=== PATIENT | female | born 1985 | race Two or more races ===

== ENCOUNTER 2017-02-27 13:41 | Emergency (ER) | payer MEDICARE, BC ==
[~2017-02-27] VITALS: Ht 165.1 cm; Wt 56.0 kg
[2017-02-27 13:44] VITALS: Ht 165.1 cm; Wt 56.0 kg
[2017-02-27] MEDS ORDERED: morphine 4 MG/ML VIAL IV STA (14:18)
[2017-02-27] MEDS ORDERED: SOD CHLORIDE 0.9% 1,000 ML IV STA (14:18)
[2017-02-27] MEDS ORDERED: ONDANSETRON 4 MG INJ IV STA (14:18)
[2017-02-27] MEDS ORDERED: DIPHENHYDRAMINE 25 MG CAP PO ONE (14:30)
[2017-02-27 14:45] LABS: BASOPHILS % 0.2 % (0.0-2.0); EOSINOPHILS # 0.2 10^3/ul (0.0-0.5); EOSINOPHILS % 3.4 % (0.0-7.0); HEMATOCRIT 34.6 % (37.0-47.0); HEMOGLOBIN 11.4 g/dl (12.0-16.0); LYMPHOCYTES # 2.1 10^3/ul (0.8-2.9); LYMPHOCYTES % 37.1 % (15.0-51.0); MEAN CORPUSCULAR HEMOGLOBIN 30.2 pg (29.0-33.0); MEAN CORPUSCULAR HGB CONC 32.9 g/dl (32.0-37.0); MEAN CORPUSCULAR VOLUME 91.5 fl (82.0-101.0); MEAN PLATELET VOLUME 8.9 fl (7.4-10.4); MONOCYTE # 0.4 10^3/ul (0.3-0.9); MONOCYTES % 6.3 % (0.0-11.0); NEUTROPHIL # 2.9 10^3/ul (1.6-7.5); NEUTROPHILS % 52.8 % (39.0-77.0); PLATELET COUNT 201 10^3/UL (140-415); RED BLOOD COUNT 3.78 10^6/ul (4.20-5.40); RED CELL DISTRIBUTION WIDTH 14.1 % (11.5-14.5); WHITE BLOOD COUNT 5.6 10^3/ul (4.8-10.8)
[2017-02-27 14:53] LABS: ADD UMIC YES; UR AMORPHOUS CRYSTAL FEW /HPF (NONE SEEN); UR ASCORBIC ACID 20 mg/dL (NEGATIVE); UR BACTERIA FEW /HPF (NONE SEEN); UR BILIRUBIN (Dip) NEGATIVE (NEGATIVE); UR BLOOD (Dip) NEGATIVE (NEGATIVE); UR CLARITY CLOUDY (CLEAR); UR COLOR YELLOW (YELLOW); UR GLUCOSE (Dip) NEGATIVE (NEGATIVE); UR KETONES (Dip) NEGATIVE (NEGATIVE); UR LEUKOCYTE ESTERASE (Dip) NEGATIVE Leu/ul (NEGATIVE); UR NITRITE (Dip) NEGATIVE (NEGATIVE); UR RBC 2 /HPF (0-5); UR SPECIFIC GRAVITY (Dip) 1.016 (1.003-1.030); UR SQUAMOUS EPITHELIAL CELL FEW /HPF (FEW); UR TOTAL PROTEIN (Dip) NEGATIVE (NEGATIVE); UR UROBILINOGEN (Dip) NEGATIVE (NEGATIVE)
[2017-02-27] MEDS ORDERED: FAMOTIDINE 20 MG INJ IV ONE (15:00)
[2017-02-27 15:06] LABS: ALBUMIN 4.6 g/dl (3.3-4.9); ALBUMIN/GLOBULIN RATIO 1.76; BILIRUBIN,INDIRECT 0.1 mg/dl (0-1.1); BILIRUBIN,TOTAL 0.1 mg/dl (0.2-1.3); CALCIUM 9.8 mg/dl (8.4-10.2); CREATININE 0.66 mg/dl (0.44-1.00); POTASSIUM 4.7 mmol/L (3.5-5.1); TOTAL PROTEIN 7.2 g/dl (6.1-8.1)
--- NOTE | 2017-02-27 16:01 | RADRPT ---
PROCEDURE: US Abdomen. CLINICAL INDICATION: Abdominal pain TECHNIQUE: Multiple real-time images were acquired of the patient's abdomen and retroperitoneum ut ilizing a high resolution transducer. COMPARISON: None FINDINGS: The liver demonstrates normal echogenicity. The liver is normal in size and no focal lesions are se en. The portal vein is patent with normal direction of flow. Mild intrahepatic biliary dilatation is seen. Gallbladder is surgically absent. The common bile duct measures 3 mm in maximal dimension. The visualized portions of the pancreas are unremarkable. The right kidney is normal size, and demonstrate normal echogenicity and cortical thickness. The ri ght kidney measures 9 cm in long dimension. There is mild hydronephrosis. There are no kidney stones . IMPRESSION: 1. Status post cholecystectomy. Mild intrahepatic biliary ductal dilatation. 2. Mild right hydronephrosis. RPTAT: QQ Physician Beny Date Time Electronically viewed and signed by Physician Beny on 02/27/2017 16:00 /
[2017-02-27] MEDS ORDERED: HYDROmorphONE 0.5 MG/0.5 ML SYG IV STA (16:16)
[2017-02-27] MEDS ORDERED: DIPHENHYDRAMINE 50 MG INJ IV ONE (16:30)
[2017-02-27] MEDS ORDERED: SCOPOLAMINE 1.5 MG PATCH TRANSDERM ONE (16:30)
[2017-02-27 17:09] VITALS: BP 112/73; PULSE 72; RESP 18; TEMP 98.8
--- NOTE | 2017-02-27 17:59 | ERD ---
ER Documentation Chief Complaint Chief Complaint epigastric pain, nausea, vomitting since this morning HPI 31-year-old female complaining of epigastric pain with nausea and vomiting since this morning. Patient states she has a history of pancreatitis and feels that her pain is similar to her previous episodes. Normal bowel movements. No chest pain or shortness of breath. No fevers. She has a "lupus-like autoimmune disorder" and is unable medications by mouth. Has not taken medications for her symptoms today. ROS All systems reviewed and are negative except as per history of present illness. PMhx/Soc Medical and Surgical Hx: pt denies Medical Hx, pt denies Surgical Hx History of Surgery: No Anesthesia Reaction: No Hx Neurological Disorder: No Hx Respiratory Disorders: No Hx Psychiatric Problems: No Hx Miscellaneous Medical Probl: No Hx Alcohol Use: No Hx Substance Use: No Hx Tobacco Use: No Physical Exam Vitals Vital Signs Date Time Temp Pulse Resp B/P Pulse Ox O2 Delivery O2 Flow Rate FiO2 02/27/17 17:09 98.8 72 18 112/73 99 02/27/17 13:44 99.0 106 18 105/69 99 Physical Exam GENERAL: The patient is well-appearing, well-nourished, in no acute distress CHEST: Clear to auscultation bilaterally. There are no rales, wheezes or rhonchi. HEART: Regular rate and rhythm. No murmurs, clicks, rubs or gallops. No S3 or S4. ABDOMEN: Normoactive bowel sounds, no distention, mild tenderness palpation epigastric region. No rigidity. No organomegaly. BACK: No midline or flank tenderness. SKIN: There is no apparent rash or petechiae. The skin is warm and dry. Result Diagram: 02/27/17 1430 02/27/17 1430 Results 24 hrs Laboratory Tests Test 02/27/17 14:30 White Blood Count 5.610^3/ul Red Blood Count 3.7810^6/ul Hemoglobin 11.4g/dl Hematocrit 34.6% Mean Corpuscular Volume 91.5fl Mean Corpuscular Hemoglobin 30.2pg Mean Corpuscular Hemoglobin Concent 32.9g/dl Red Cell Distribution Width 14.1% Platelet Count 77275^3/UL Mean Platelet Volume 8.9fl Neutrophils % 52.8% Lymphocytes % 37.1% Monocytes % 6.3% Eosinophils % 3.4% Basophils % 0.2% Nucleated Red Blood Cells % 0.0/100WBC Neutrophils # 2.910^3/ul Lymphocytes # 2.110^3/ul Monocytes # 0.410^3/ul Eosinophils # 0.210^3/ul Basophils # 0.010^3/ul Nucleated Red Blood Cells # 0.010^3/ul Urine Color YELLOW Urine Clarity CLOUDY Urine pH 7.0 Urine Specific [place] 1.016 Urine Ketones NEGATIVEmg/dL Urine Nitrite NEGATIVEmg/dL Urine Bilirubin NEGATIVEmg/dL Urine Urobilinogen NEGATIVEmg/dL Urine Leukocyte Esterase NEGATIVELeu/ul Urine Microscopic RBC 2/HPF Urine Microscopic WBC 6/HPF Urine Squamous Epithelial Cells FEW/HPF Urine Amorphous Crystals FEW/HPF Urine Bacteria FEW/HPF Urine Hemoglobin NEGATIVEmg/dL Urine Glucose NEGATIVEmg/dL Urine Total Protein NEGATIVEmg/dl Sodium Level 143mmol/L Potassium Level 4.7mmol/L Chloride Level 106mmol/L Carbon Dioxide Level 25mmol/L Anion Gap 17 Blood Urea Nitrogen 13mg/dl Creatinine 0.66mg/dl Glucose Level 96mg/dl Calcium Level 9.8mg/dl Total Bilirubin 0.1mg/dl Direct Bilirubin 0.00mg/dl Indirect Bilirubin 0.1mg/dl Aspartate Amino Transf (AST/SGOT) 19IU/L Alanine Aminotransferase (ALT/SGPT) 22IU/L Alkaline Phosphatase 61IU/L Total Protein 7.2g/dl Albumin 4.6g/dl Globulin 2.60g/dl Albumin/Globulin Ratio 1.76 Lipase 470U/L Serum HCG, Qualitative NEGATIVE Current Medications Medications (Trade) Dose Ordered Sig/Sharan Route PRN Reason Start Time Stop Time Status Last Admin Dose Admin Sodium Chloride (NS) 1,000 ml @ 1,000 mls/hr Q1H STAT IV 02/27/17 14:18 02/27/17 15:17 DC 02/27/17 14:30 Morphine Sulfate (morphine) 4 mg ONCE STAT IV 02/27/17 14:18 02/27/17 14:21 DC 02/27/17 14:36 Ondansetron HCl (Zofran Inj) 4 mg ONCE STAT IV 02/27/17 14:18 02/27/17 14:21 DC 02/27/17 14:36 Diphenhydramine HCl (Benadryl) 25 mg ONCE ONCE PO 02/27/17 14:30 02/27/17 14:31 DC 02/27/17 14:35 Famotidine (Pepcid Iv) 20 mg ONCE ONCE IV 02/27/17 15:00 02/27/17 15:01 DC 02/27/17 14:45 Hydromorphone HCl (Dilaudid) 0.5 mg ONCE STAT IV 02/27/17 16:16 02/27/17 16:17 DC 02/27/17 16:36 Scopolamine (Transderm-Scop) 1 patch ONCE ONCE TRANSDERM 02/27/17 16:30 02/27/17 16:31 DC 02/27/17 16:41 Diphenhydramine HCl (Benadryl) 25 mg ONCE ONCE IV 02/27/17 16:30 02/27/17 16:31 DC 02/27/17 16:36 Procedures/MDM DIAGNOSTIC IMAGING REPORT Patient: KARLEY AMBRIZ : 1985 Age: 31 Sex: F MR #: [id number] DOS: 02/27/17 1418 Ordering MD: BERENICE FLORES PA-C Location: [facility] Room/Bed: PROCEDURE: US Abdomen. CLINICAL INDICATION: Abdominal pain TECHNIQUE: Multiple real-time images were acquired of the patient's abdomen and retroperitoneum utilizing a high resolution transducer. COMPARISON: None FINDINGS: The liver demonstrates normal echogenicity. The liver is normal in size and no focal lesions are seen. The portal vein is patent with normal direction of flow. Mild intrahepatic biliary dilatation is seen. Gallbladder is surgically absent. The common bile duct measures 3 mm in maximal dimension. The visualized portions of the pancreas are unremarkable. The right kidney is normal size, and demonstrate normal echogenicity and cortical thickness. The right kidney measures 9 cm in long dimension. There is mild hydronephrosis. There are no kidney stones. IMPRESSION: 1. Status post cholecystectomy. Mild intrahepatic biliary ductal dilatation. 2. Mild right hydronephrosis. ER Course: IV Morphine, Dilaudid, and Benadryl given in ED. patient's symptoms improved. Pain was well controlled. MDM: 31-year-old female complaining of epigastric pain with a history of pancreatitis. Patient does have mildly elevated lipase however is not 3 times the upper limit and pain is controlled upon discharge I do not feel there is indication for admission at this time. Patient's ultrasound is within normal limits. LFTs are within normal limits I do not feel there is concern for choledocholithiasis at this time. Patient's pain is well controlled and patient is tolerating p.o.'s in the ED. I do not feel that there is indication for admission at this time. I have low suspicion for other acute abdominal emergencies and do not feel there is indication for CT scan. Patient is discharged with strict ER precautions and recommended to follow-up with primary care within 1-2 days for close evaluation. Patient is discharged with strict ER precautions, all questions answered discharge per Departure Diagnosis: Primary Impression: Epigastric pain Condition: Stable Patient Instructions: Epigastric Pain (Uncertain Cause) Referrals: [facility] YOU HAVE RECEIVED A MEDICAL SCREENING EXAM AND THE RESULTS INDICATE THAT YOU DO NOT HAVE A CONDITION THAT REQUIRES URGENT TREATMENT IN THE EMERGENCY DEPARTMENT. FURTHER EVALUATION AND TREATMENT OF YOUR CONDITION CAN WAIT UNTIL YOU ARE SEEN IN YOUR DOCTORS OFFICE WITHIN THE NEXT 1-2 DAYS. IT IS YOUR RESPONSIBILITY TO MAKE AN APPOINTMENT FOR [facility]. IF YOU HAVE A PRIMARY DOCTOR --you should call your primary doctor and schedule an appointment IF YOU DO NOT HAVE A PRIMARY DOCTOR YOU CAN CALL OUR PHYSICIAN REFERRAL HOTLINE AT IF YOU CAN NOT AFFORD TO SEE A PHYSICIAN YOU CAN CHOSE FROM THE FOLLOWING [facility] [address] [facility] [facility] [address] [facility] [facility] [address] [facility] [address] [facility]. [facility] [address] [facility]. [facility] [address] Additional Instructions: FOLLOW UP WITH YOUR PRIMARY CARE PHYSICIAN TOMORROW.Return to this facility if you are not improving as expected. MARILIN FLORES PA-C Feb 27, 2017 17:59
== END 2017-02-27 17:10 | disposition home or self-care (01) ==
LOC: FTE 13:41
DX: R10.13 Epigastric pain (principal); R11.2 Nausea with vomiting, unspecified
CPT/HCPCS: 36415; 76705; 80053; 81001; 83690; 84703; 85025; 96374; 96375; 99285; J1170; J1200; J2270; J2405; J7030

== ENCOUNTER 2017-04-03 10:43 | Emergency (ER) | payer MEDICARE, BC ==
[~2017-04-03] VITALS: Ht 165.1 cm; Wt 55.2 kg
[2017-04-03 10:54] VITALS: Ht 165.1 cm; Wt 55.2 kg
[2017-04-03 12:49] LABS: BASOPHILS % 0.6 % (0.0-2.0); EOSINOPHILS # 0.2 10^3/ul (0.0-0.5); EOSINOPHILS % 2.9 % (0.0-7.0); HEMATOCRIT 33.4 % (37.0-47.0); HEMOGLOBIN 11.4 g/dl (12.0-16.0); LYMPHOCYTES # 1.7 10^3/ul (0.8-2.9); LYMPHOCYTES % 31.6 % (15.0-51.0); MEAN CORPUSCULAR HEMOGLOBIN 30.5 pg (29.0-33.0); MEAN CORPUSCULAR HGB CONC 34.1 g/dl (32.0-37.0); MEAN CORPUSCULAR VOLUME 89.3 fl (82.0-101.0); MONOCYTE # 0.4 10^3/ul (0.3-0.9); MONOCYTES % 7.9 % (0.0-11.0); NEUTROPHIL # 3.1 10^3/ul (1.6-7.5); NEUTROPHILS % 56.8 % (39.0-77.0); PLATELET COUNT 213 10^3/UL (140-415); RED BLOOD COUNT 3.74 10^6/ul (4.20-5.40); RED CELL DISTRIBUTION WIDTH 13.8 % (11.5-14.5); WHITE BLOOD COUNT 5.5 10^3/ul (4.8-10.8)
[2017-04-03 12:57] LABS: ADD UMIC NO; UR ASCORBIC ACID NEGATIVE (NEGATIVE); UR BILIRUBIN (Dip) NEGATIVE (NEGATIVE); UR BLOOD (Dip) NEGATIVE (NEGATIVE); UR CLARITY CLEAR (CLEAR); UR COLOR YELLOW (YELLOW); UR GLUCOSE (Dip) NEGATIVE (NEGATIVE); UR KETONES (Dip) NEGATIVE (NEGATIVE); UR LEUKOCYTE ESTERASE (Dip) NEGATIVE Leu/ul (NEGATIVE); UR NITRITE (Dip) NEGATIVE (NEGATIVE); UR SPECIFIC GRAVITY (Dip) 1.017 (1.003-1.030); UR TOTAL PROTEIN (Dip) NEGATIVE (NEGATIVE); UR UROBILINOGEN (Dip) NEGATIVE (NEGATIVE)
[2017-04-03] MEDS ORDERED: morphine 4 MG/ML VIAL IV STA ×2 (13:06→14:35)
[2017-04-03] MEDS ORDERED: SOD CHLORIDE 0.9% 1,000 ML IV STA (13:06)
[2017-04-03] MEDS ORDERED: ONDANSETRON 4 MG INJ IV STA ×2 (13:06→14:35)
[2017-04-03 13:13] LABS: ALBUMIN 4.1 g/dl (3.3-4.9); ALBUMIN/GLOBULIN RATIO 1.36; BILIRUBIN,INDIRECT 0.2 mg/dl (0-1.1); BILIRUBIN,TOTAL 0.2 mg/dl (0.2-1.3); CALCIUM 9.4 mg/dl (8.4-10.2); CREATININE 0.6 mg/dl (0.44-1.00); POTASSIUM 4.5 mmol/L (3.5-5.1); TOTAL PROTEIN 7.1 g/dl (6.1-8.1)
[2017-04-03] MEDS ORDERED: SOD CHLORIDE 0.9% 100 ML ONE (13:36)
[2017-04-03] MEDS ORDERED: IOHEXOL 300MG/ML 150 ML BTL ONE (13:36)
[2017-04-03] MEDS ORDERED: FAMOTIDINE 20 MG INJ IV STA (14:35)
--- NOTE | 2017-04-03 14:51 | RADRPT ---
PROCEDURE: CT Abdomen and Pelvis with contrast. CLINICAL INDICATION: Abdominal pain. TECHNIQUE: CT scan of the abdomen and pelvis with contrast was performed on a multi-detector CT [facility] [place]. The patient was scanned following the uncomplicated intravenous administration of 90 cc of O mnipaque 300. Coronal and sagittal reformatted images were obtained from the axial source images. Im ages were reviewed on a high-resolution PACS workstation. DICOM images are available. One or more of the following dose reduction techniques were used: -Automated exposure control. -Adjustment of the mA and/or kV according to patient size. -Use of iterative reconstruction technique. The total exam CTDI equals 5.10 mGy and the total exam DLP equals 250.10 mGy-cm. COMPARISON: Ultrasound 02/27/2017. FINDINGS: Images of the lung bases are clear. Incompletely imaged breast implants. CT abdomen: Liver: There are a few too small to characterize hypodense lesions in the liver. Biliary system: Mild prominence of a few intrahepatic bile ducts, likely related to post cholecystec chen state. Gallbladder: There are post-surgical changes of a cholecystectomy. Pancreas: Unremarkable. Spleen: Unremarkable. Adrenal glands: Unremarkable. Right kidney: Unremarkable. No hydronephrosis or hydroureter. Left kidney: Unremarkable. No hydronephrosis or hydroureter. Bowel loops: There are nonspecific mildly prominent air and fluid-filled small bowel loops. There is a moderate amount of stool noted throughout the colon. Appendix is normal. There is no bowel obstr uction. Lymph Nodes: There is no mesenteric lymphadenopathy. There is no retroperitoneal lymphadenopathy. CT pelvis: Rectum: Unremarkable. Urinary bladder: Unremarkable. Uterus appears unremarkable. No adnexal masses. Lymph nodes: There is no iliac lymphadenopathy. There is no inguinal lymphadenopathy. Bone: No aggressive osseous lesions. IMPRESSION: 1. Non-specific mildly prominent air and fluid-filled small bowel loops, which can be seen with ent eritis. Moderate amount of stool throughout the colon. No bowel obstruction. Normal appendix. 2. Status post cholecystectomy. RPTAT: [facility] Physician Jeane Date Time Electronically viewed and signed by Calvin Acuña Physician on 04/03/2017 14:51 PH/
--- NOTE | 2017-04-03 15:27 | ERD ---
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 Recent cultures of this have been clear. Patient says she has had diarrhea for 3 days that is watery and nonbloody she is also complaining of some epigastric tenderness with heartburn which is chronic. She has a history of tachycardia of uncertain etiology but she is not having any episodes and no chest pain. No vomiting no fever no back pain. She is also complaining of 2-3 days of dysuria ROS All systems reviewed and are negative except as per history of present illness. Medications Home Meds No Active Prescriptions or Reported Meds Allergies Allergies: Coded Allergies: Penicillins (Unverified Allergy, Unknown, 04/03/17) Sulfa (Sulfonamide Antibiotics) (Unverified Allergy, Unknown, 04/03/17) acetaminophen (Unverified Allergy, Unknown, 04/03/17) aspirin (Unverified Allergy, Unknown, 04/03/17) codeine (Unverified Allergy, Unknown, 04/03/17) metoclopramide (Unverified Allergy, Unknown, 04/03/17) prochlorperazine (Unverified Allergy, Unknown, 04/03/17) vancomycin (Unverified Allergy, Unknown, 04/03/17) PMhx/Soc History of Surgery: No Anesthesia Reaction: No Hx Neurological Disorder: No Hx Respiratory Disorders: No Hx Psychiatric Problems: No Hx Miscellaneous Medical Probl: No Hx Alcohol Use: No Hx Substance Use: No Hx Tobacco Use: No Smoking Status: Never smoker FmHx Family History: No coronary disease Physical Exam Vitals Vital Signs Date Time Temp Pulse Resp B/P Pulse Ox O2 Delivery O2 Flow Rate FiO2 04/03/17 10:54 98.0 122 18 134/88 100 Physical Exam Const: Well-developed, well-nourished Head: Atraumatic, normocephalic Eyes: Normal Conjunctiva, PERRLA, EOMI, normal sclera, no nystagmus ENT: Normal External Ears, Nose and Mouth, moist mucus membranes. Neck: Full range of motion. No meningismus, no lymphadenopathy. Resp: Clear to auscultation bilaterally, no wheezing, rhonchi, rales Cardio: Regular rate and rhythm, no murmurs, S1 S2 present Abd: Soft, mild epigastric tenderness, non distended. Normal bowel sounds, no guarding or rebound, no pulsitile abdominal masses or bruits Skin: No petechiae or rashes, no ecchymosis , no maculopapular rash Back: No midline or flank tenderness Ext: No cyanosis, or edema, FROM x 4, normal inspection, neurovascularly intact x 4 Neur: Awake and alert, STR 5/5 x 4, sensation intact x 4, no focal findings, cerebellum intact Psych: Normal Mood and Affect Result Diagram: 04/03/17 1230 04/03/17 1230 Results 24 hrs Laboratory Tests Test 04/03/17 12:30 White Blood Count 5.510^3/ul Red Blood Count 3.7410^6/ul Hemoglobin 11.4g/dl Hematocrit 33.4% Mean Corpuscular Volume 89.3fl Mean Corpuscular Hemoglobin 30.5pg Mean Corpuscular Hemoglobin Concent 34.1g/dl Red Cell Distribution Width 13.8% Platelet Count 48278^3/UL Mean Platelet Volume 9.0fl Neutrophils % 56.8% Lymphocytes % 31.6% Monocytes % 7.9% Eosinophils % 2.9% Basophils % 0.6% Nucleated Red Blood Cells % 0.0/100WBC Neutrophils # 3.110^3/ul Lymphocytes # 1.710^3/ul Monocytes # 0.410^3/ul Eosinophils # 0.210^3/ul Basophils # 0.010^3/ul Nucleated Red Blood Cells # 0.010^3/ul Urine Color YELLOW Urine Clarity CLEAR Urine pH 7.0 Urine Specific [place] 1.017 Urine Ketones NEGATIVEmg/dL Urine Nitrite NEGATIVEmg/dL Urine Bilirubin NEGATIVEmg/dL Urine Urobilinogen NEGATIVEmg/dL Urine Leukocyte Esterase NEGATIVELeu/ul Urine Hemoglobin NEGATIVEmg/dL Urine Glucose NEGATIVEmg/dL Urine Total Protein NEGATIVEmg/dl Sodium Level 141mmol/L Potassium Level 4.5mmol/L Chloride Level 106mmol/L Carbon Dioxide Level 24mmol/L Anion Gap 16 Blood Urea Nitrogen 10mg/dl Creatinine 0.60mg/dl Glucose Level 85mg/dl Calcium Level 9.4mg/dl Total Bilirubin 0.2mg/dl Direct Bilirubin 0.00mg/dl Indirect Bilirubin 0.2mg/dl Aspartate Amino Transf (AST/SGOT) 26IU/L Alanine Aminotransferase (ALT/SGPT) 36IU/L Alkaline Phosphatase 70IU/L Total Protein 7.1g/dl Albumin 4.1g/dl Globulin 3.00g/dl Albumin/Globulin Ratio 1.36 Lipase 313U/L Current Medications Medications (Trade) Dose Ordered Sig/Sharan Route PRN Reason Start Time Stop Time Status Last Admin Dose Admin Sodium Chloride (NS) 1,000 ml @ 1,000 mls/hr Q1H STAT IV 04/03/17 13:06 04/03/17 14:05 DC 04/03/17 13:29 Morphine Sulfate (morphine) 6 mg ONCE STAT IV 04/03/17 13:06 04/03/17 13:08 DC 04/03/17 13:29 Ondansetron HCl 4 mg 4 mg ONCE STAT IV 04/03/17 13:06 04/03/17 13:08 DC 04/03/17 13:29 Sodium Chloride (NS) 100 ml @ ud STK-MED ONCE .ROUTE 04/03/17 13:36 04/03/17 13:37 DC 04/03/17 13:49 Iohexol (Omnipaque 300mg/ ml) 150 ml STK-MED ONCE .ROUTE 04/03/17 13:36 04/03/17 13:37 DC 04/03/17 13:50 Morphine Sulfate (morphine) 6 mg ONCE STAT IV 04/03/17 14:35 04/03/17 14:36 DC 04/03/17 14:44 Ondansetron HCl (Zofran Inj) 4 mg ONCE STAT IV 04/03/17 14:35 04/03/17 14:36 DC 04/03/17 14:44 Famotidine (Pepcid Iv) 20 mg ONCE STAT IV 04/03/17 14:35 04/03/17 14:36 DC 04/03/17 14:44 Procedures/MDM PROCEDURE: CT Abdomen and Pelvis with contrast. CLINICAL INDICATION: Abdominal pain. TECHNIQUE: CT scan of the abdomen and pelvis with contrast was performed on a multi-detector CT scanner. The patient was scanned following the uncomplicated intravenous administration of 90 cc of Omnipaque 300. Coronal and sagittal reformatted images were obtained from the axial source images. Images were reviewed on a high-resolution PACS workstation. DICOM images are available. One or more of the following dose reduction techniques were used: -Automated exposure control. -Adjustment of the mA and/or kV according to patient size. -Use of iterative reconstruction technique. The total exam CTDI equals 5.10 mGy and the total exam DLP equals 250.10 mGy-cm. COMPARISON: Ultrasound 02/27/2017. FINDINGS: Images of the lung bases are clear. Incompletely imaged breast implants. CT abdomen: Liver: There are a few too small to characterize hypodense lesions in the liver. Biliary system: Mild prominence of a few intrahepatic bile ducts, likely related to post cholecystectomy state. Gallbladder: There are post-surgical changes of a cholecystectomy. Pancreas: Unremarkable. Spleen: Unremarkable. Adrenal glands: Unremarkable. Right kidney: Unremarkable. No hydronephrosis or hydroureter. Left kidney: Unremarkable. No hydronephrosis or hydroureter. Bowel loops: There are nonspecific mildly prominent air and fluid-filled small bowel loops. There is a moderate amount of stool noted throughout the colon. Appendix is normal. There is no bowel obstruction. Lymph Nodes: There is no mesenteric lymphadenopathy. There is no retroperitoneal lymphadenopathy. CT pelvis: Rectum: Unremarkable. Urinary bladder: Unremarkable. Uterus appears unremarkable. No adnexal masses. Lymph nodes: There is no iliac lymphadenopathy. There is no inguinal lymphadenopathy. Bone: No aggressive osseous lesions. IMPRESSION: 1. Non-specific mildly prominent air and fluid-filled small bowel loops, which can be seen with enteritis. Moderate amount of stool throughout the colon. No bowel obstruction. Normal appendix. 2. Status post cholecystectomy. RPTAT: [facility] Physician Jeane Date Time Electronically viewed and signed by Calvin Acuña Physician on 04/03/2017 14:51 PH/ CC: RADHA PERAZA DO Patient has some enteritis is possible some antibiotics she was getting through port. Will treat with some Flagyl and antidiarrheal medicine. Does not have a UTI as she likely has some type of urethritis Departure Diagnosis: Primary Impression: Enteritis Condition: Stable RADHA PERAZA DO Apr 03, 2017 15:25
[2017-04-03] MEDS ORDERED: METR500T PO (15:28)
[2017-04-03] MEDS ORDERED: HYDR-902 PO (15:28)
[2017-04-03] MEDS ORDERED: DIPH1TAB PO (15:28)
[2017-04-03] MEDS ORDERED: DIPHENHYDRAMINE 50 MG INJ IV ONE (16:00)
== END 2017-04-03 15:43 | disposition home or self-care (01) ==
LOC: FTE 10:43 → E/R 15:43
DX: K52.9 Noninfective gastroenteritis and colitis, unspecified (principal)
CPT/HCPCS: 36415; 74177; 80053; 81003; 83690; 85025; 96374; 96375; 96376; 99285; J1200; J2270; J2405; J7030; Q9967

== ENCOUNTER 2017-04-10 07:39 | Emergency (ER) | END 2017-04-10 09:54 | disposition home or self-care (01) ==